=== PATIENT | male | born 1990 | race Caucasian/White ===

== ENCOUNTER → 2023-09-07 | Outpatient (CLI) | payer SELFPAY ==
[~2023-09-07] MED LIST: Bactrim Ds Tab1 EACH PO; HYDACE5 PO; IBUP600 PO; Keflex500 MG PO; Norco 5-325 Ta1 EACH PO; Ultram50 MG PO
[2023-09-10 00:03] LABS: APTIMA MEDIA TYPE Urine; C. TRACHOMATIS BY TMA Positive (Negative); N. GONORRHOEAE BY TMA Negative (Negative); SPECIMEN SOURCE Urine
== END ==
LOC: LAB 16:03 → LAB SHORT 16:03
PROVIDERS: Physician Assistant
DX: N34.1 Nonspecific urethritis (principal)
CPT/HCPCS: 87491; 87591

== ENCOUNTER 2023-09-18 23:50 | Emergency (ER) | payer SELFPAY ==
[~2023-09-18] VITALS: Ht 162.6 cm; Wt 59.0 kg
[2023-09-19 00:27] VITALS: BP 129/106
[2023-09-19] MEDS ORDERED: Percocet 5-3251 EACH PO (04:12)
[2023-09-19] MEDS ORDERED: AMOCLA875 PO (04:12)
== END 2023-09-19 05:09 | disposition home or self-care (01) ==
LOC: ER 23:50
DX: S02.32XA Fracture of orbital floor, left side, initial encounter for closed fracture (principal); S01.01XA Laceration without foreign body of scalp, initial encounter; M25.511 Pain in right shoulder; Y04.0XXA Assault by unarmed brawl or fight, initial encounter
CPT/HCPCS: 12001; 12011; 70450; 70486; 73030; 99284-25; A9270